=== PATIENT | female | born 1955 | race Caucasian/White ===

== ENCOUNTER 2024-08-01 10:52 | Outpatient (AMB) | payer OTHER, SELFPAY ==
--- NOTE | 2024-08-01 10:58 | A.OFFVIS_ITS ---
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 Required: No Information Interpreted: non-clinical & clinical Condenser Tester: Condenser Tester Present (Rosangela BEYBarb) Accompanied by: Self / Same As Patient Allergies No Known Allergies Allergy (Verified 08/01/24 11:03) Post menopausal: Yes HPI Comments Details: Presenting complaining of right labial lesion associated with burning/irritation of few months' duration, no vaginal discharge itching or odor PFSH Medical History Hyperlipidemia Surgical History (Reviewed 08/01/24 @ :24 by Edvin Garcia MD) H/O right breast biopsy H/O sinus surgery Family History Mother Cervical cancer Father Heart attack Brother Heart disease Social History Household Members: Spouse Housing: House Alcohol intake: never Patient Tobacco Use Status: Former Tobacco user Tobacco use type: Cigarette Years Smoked: 25 Current occupational status: retired Sexual orientation: Straight/Heterosexual Gender identity: Female Review of Systems Const All systems reviewed & are unremarkable except as noted in HPI and below Physical Exam Vital Signs: BMI result Body Mass Index 25.1 General: Yes no CVA tenderness External Female Exam: No normal external appearance (Right 0.5 cm labia majora lesion) and normal appearance of the urethra Speculum Exam - Vagina: normal appearance of the vagina, normal palpation, no lesions and no masses Speculum Exam - Cervix: normal appearance of the cervix, normal palpation, no lesions, no masses and nontender Bimanual exam- vagina & uterus: normal bimanual exam, normal palpation, uterine size normal, normal palpation, uterine shape normal, No Cervical tenderness present and non-tender Bimanual Exam- Adnexa, other: normal adnexae Back/Spine/Pelvis Back: no CVA tenderness Assessment & Plan Assessment & Plan (1) Labial lesion: Comment: Right labia majora 0.5 cm Code(s): N90.89 - Other specified noninflammatory disorders of vulva and perineum Category: Medical Plan: Discussed with the patient the finding on pelvic exam showing a right labia lesion, recommended excisional biopsy. Instructions given the patient to schedule an appointment, all questions answered, the patient verbalized understanding and agreed with the plan. Coding Level of Care Code New Pt Level 3 (45679) Diagnoses Labial lesion N90.89
[2024-08-01 11:01] VITALS: BP 118/72; BMI 25.1
== END 2024-08-01 11:27 | disposition home or self-care (01) ==
PROVIDERS: PCP Internal Medicine; Visit Provider Obstetrics & Gynecology
DX: N90.89 Other specified noninflammatory disorders of vulva and perineum (principal)
CPT/HCPCS: 99203

== ENCOUNTER → 2024-08-01 10:52 | Outpatient (BNVA) | payer OTHER, SELFPAY | PROVIDERS: PCP Internal Medicine; Visit Provider Obstetrics & Gynecology ==

== ENCOUNTER 2024-09-06 08:30 | Outpatient (REF) | payer OTHER, SELFPAY | END 2024-09-06 08:31 | disposition home or self-care (01) | LOC: HO.LNP 08:30 | PROVIDERS: PCP Internal Medicine; Visit Provider Obstetrics & Gynecology | DX: N90.89 Other specified noninflammatory disorders of vulva and perineum (principal); L72.0 Epidermal cyst | CPT/HCPCS: 56605; 88304; 88305 ==

== ENCOUNTER 2024-09-06 08:30 | Outpatient (AMB) | payer OTHER, SELFPAY ==
--- NOTE | 2024-09-06 08:48 | A.OFFVIS_ITS ---
Intake Visit Reasons: vaginal cyst Insurance Assistant: Insurance Assistant Present (Brooke) Accompanied by: Self / Same As Patient Allergies No Known Allergies Allergy (Verified 09/06/24 08:48) HPI Comments Details: Presenting for right labial lesion excision [facility] Medical History Hyperlipidemia Surgical History H/O right breast biopsy H/O sinus surgery Family History Mother Cervical cancer Father Heart attack Brother Heart disease Social History Household Members: Spouse Housing: House Alcohol intake: never Patient Tobacco Use Status: Former Tobacco user Tobacco use type: Cigarette Years Smoked: 25 Current occupational status: retired Sexual orientation: Straight/Heterosexual Gender identity: Female Review of Systems Const All systems reviewed & are unremarkable except as noted in HPI and below Physical Exam General: Yes no CVA tenderness External Female Exam: normal external appearance and normal appearance of the urethra Speculum Exam - Vagina: normal appearance of the vagina, normal palpation, no lesions and no masses Speculum Exam - Cervix: normal appearance of the cervix, normal palpation, no lesions, no masses and nontender Bimanual exam- vagina & uterus: normal bimanual exam, normal palpation, uterine size normal, normal palpation, uterine shape normal, No Cervical tenderness present and non-tender Bimanual Exam- Adnexa, other: normal adnexae Back/Spine/Pelvis Back: no CVA tenderness Office Procedures MATHEMATICS FACULTY MEMBER Biopsy Before the procedure was started d/w patient the procedure, alternatives ( do nothing, medical rx), & all the risks associated with the procedure ( bleeding , infection, vulvar scarring, painful intercourse, injury to vessels, possible need for transfusion with all its risks) then patient signed the consent. Preop dx: Right labia majora lesion Op: Right labia majora lesion excision Post op: Same Anesthesia: Lidocaine 1% 3cc used Procedure: Using betadine the area was scrubbed and draped in the usual manner. 3 cc of lidocaine was used for anesthesia at the Right labia majora lesion area ; using scissors and pickup the left vulvar lesion was excised, Vicryl was used to approximate the edges. Pressure was used for hemostasis. The patient tolerated the procedure well. Discharge Instructions: The patient was instructed to schedule an appointment in 2 weeks for follow-up and to call if temp>100.4, area of the biopsy redness or pain, nausea/vomiting. This note was generated with a voice recognition program. Some errors may have been overlooked during the review of this note. Sometimes these errors may affect the content or meaning of a given sentence. 10092-Konnnp of Vulva/Perineum Procedure code (CPT) selection complete Assessment & Plan Assessment & Plan (1) Labial lesion: Comment: Right labia majora 0.5 cm Code(s): N90.89 - Other specified noninflammatory disorders of vulva and perineum Category: Medical Plan: Right labial excision done, see procedure Orders: Orders AMB MATHEMATICS FACULTY MEMBER Biopsy Today N90.89 - Other specified noninflammatory disorders of vulva and perineum Coding Level of Care Code Procedure Only Diagnoses Labial lesion N90.89 CPT Codes MATHEMATICS FACULTY MEMBER Biopsy - CPT: 25687-Vrqnte of Vulva/Perineum ([id number])
== END 2024-09-06 09:19 | disposition home or self-care (01) ==
LOC: HO.HWS 08:30
PROVIDERS: PCP Internal Medicine; Visit Provider Obstetrics & Gynecology
DX: N90.89 Other specified noninflammatory disorders of vulva and perineum (principal)
CPT/HCPCS: 56605

== ENCOUNTER 2024-10-17 15:20 | Outpatient (AMB) | payer OTHER, SELFPAY ==
--- NOTE | 2024-10-17 15:30 | MHC.OFFVIS ---
Intake Visit Reasons: biopsy results Psychological Operations Specialist: Psychological Operations Specialist Present (Brooke) Accompanied by: Self / Same As Patient Allergies No Known Allergies Allergy (Verified 10/17/24 15:31) HPI Comments Details: Presenting to discuss the results of vulvar biopsy. If doing well with no complaint. The pathology showed the following: Vulva, right labia majora lesion, excision: Epidermal inclusion cyst. PFSH Medical History Hyperlipidemia Surgical History H/O right breast biopsy H/O sinus surgery Family History Mother Cervical cancer Father Heart attack Brother Heart disease Social History Household Members: Spouse Housing: House Alcohol intake: never Patient Tobacco Use Status: Former Tobacco user Tobacco use type: Cigarette Years Smoked: 25 Current occupational status: retired Sexual orientation: Straight/Heterosexual Gender identity: Female Review of Systems Const All systems reviewed & are unremarkable except as noted in HPI and below Reports as per HPI and Reports no additional complaints GI Reports no additional complaints Reports no additional complaints Assessment & Plan Assessment & Plan (1) Labial lesion: Comment: Right labia majora 0.5 cm Code(s): N90.89 - Other specified noninflammatory disorders of vulva and perineum Category: Medical Plan: Discussed with the patient the results the pathology. Instructions given the patient to call in case of recurrence of the cyst or any other concerns. All questions answered, the patient verbalized understanding Coding Level of Care Code Est Pt Level 3 (24277) Diagnoses Labial lesion N90.89
--- OUTSIDE RECORDS SUMMARY | 2024-10-17 16:23 | XMS_ITS | Continuity of Care Document ---
Author Organization [facility], [address] floor Address [address] [place] [address] Care Team Providers Care Dredge Operator Supervisor Name Role Phone ESTEPHANIA SWAN Primary Care Provider Assessment No assessment recorded. Plan of Treatment Reminders Order Date Submit Date Provider Last Modified By Organization Details Last Modified Time Details Appointments RECHECK 15 2024 09:00A M Isai Lacey PA-C Not available Not available Not available Lab None recorded . Referral None recorded . Procedures None recorded . Surgeries None recorded . Imaging None recorded . Medication Orders None recorded . Patient TargetsNo targets recorded. Patient InstructionsNo instructions recorded. Reason for Referral None Reported. Problems Name Problem SNOMED Code Status Onset Date Resolution Date Notes Provider Name and Address Organization Details Recorded Time Osteoarthri tis of left knee joint [id number] 09 Active 2023 Ever Baker MD [address], [place], [address], [facility] 4 13:21:33 Problem Notes None recorded. Procedures Surgical History Date Name Laterality Status Provider Name and Address Organization Details Recorded Time 5 Knee Kenalog 1cc L/R completed Isai Lacey PA-C [address], [place], [address], [facility] 10/10/2024 07:21:25 4 Sports Knee 4&1 completed Isai Lacey PA-C [address], [place], [address], [facility] 06/27/2024 17:04:50 Imaging Results None recorded. Procedure Notes None recorded. Medical Equipment None Reported. Allergies No known drug allergies Medications Name Sig Start Date Stop Date Status Note LastModified by Organization Details LastModified Time atorvastati n 20 mg tablet TAKE 1 TABLET BY MOUTH EVERY NIGHT active Not Available Not Available No t Available miconazole nitrate 2 % topical cream APPLY TOPICALLY TO THE AFFECTED AREA TWICE DAILY NEEDED 07/31 completed Not Available Not Available Not Available fluconazole 150 mg tablet 07/31 completed Not Available Not Available Not Available citalopram 10 mg tablet TAKE 1 TABLET BY MOUTH DAILY active Not Available Not Available No t Available lovastatin 10 mg tablet TAKE 1 TABLET BY MOUTH DAILY active Not Available Not Available No t Available celecoxib 100 mg capsule TAKE 1 CAPSULE BY MOUTH DAILY active Not Available Not Available No t Available diclofenac 1 % topical gel APPLY 2 GRAMS TOPICALLY TO THE AFFECTED AREA FOUR TIMES DAILY active Not Available Not Available No t Available Vitals Date Recorded Body height Provider Name an d Address Organization Details Last Updated DateTime 10/10/2024 168.91 cm ALLYSON MANZO [place] [facility] 10/10/2024 09:18:11 Social History None recorded. Functional Status None recorded. Mental Status None recorded. Family History Nothing Reported. Medical History No medical history recorded. Gynecological HistoryNo gynecological history recorded. Obstetrics History GPAL:G 0 P 0 0 0 0 Past Encounters Encounter ID Performer Location Encounter Start Date Encounter Closed Date Diagnosis/Indication Diagnosis SNOMED-CT Code Diagnosis ICD10 Code Diagnosis Note [id number] [facility] [address] [facility] [place] [address] 10/10/2024 09:06:57 10/10/2024 10:10:12 Osteoarthritis of left knee joint [id number] 47919 M17.12 Health Concerns Section Related Observation LastModified by Organization Detai ls LastModified Time None Recorded Concern Status LastModified by Organization Details LastModified Time None Recorded Payers Encounter Date Sequence Insurance Name Policy Number Policy Oconnor Covered Member ID Oconnor Member ID Guarantor Name 10/10/2024 1 [employer] (MEDICARE REPLACEMENT PPO) [id number] Richa Aragon [id number] Richa Aragon Notes Date Note Type Note Provider Name and Address Organization Details Recorded Time 10/10/2024 text/html .I am seeing the patient today under the supervision of {{Olivia* Giovanni }} who was available but who did not see the patient. Chief Complaint The patient presents today for recheck of {{left* right}} knee osteoarthritis. Is known to have knee arthritis treated conservatively to this point with {{1 2 3*}} months relief of symptoms. Presents today for recheck secondary to increased knee pain. Past Medical/Surgical History Reviewed today, otherwise unchanged per intake sheet. Physical Findings General Appearance: ? ? ? Well developed. ? ? ? In no acute distress. Musculoskeletal System: Knee: General/bilateral: ? ? ? No laxity of the knee. Right Knee: ? Medial aspect was tender on palpation. ? ? ? No erythema. ? ? ? No warmth. Left Knee: ? Medial aspect was tender on palpation. ? ? ? No erythema. ? ? ? No warmth. Musculoskeletal Scales: General/bilateral: ? Mild effusion noted. Neurological: ? ? ? Oriented to time, place, and person. Gait And Stance: ? ? ? Normal. Psychiatric: ? ? ? Mood was appropriate to the affect. Left knee 0-120 degrees of flexion with discomfort. Assessment ? Osteoarthritis of knee - Plan More than 50% of todays visit was spent on direct patient counseling regarding their knee condition and treatment options both operative with knee arthroplasty and non-operative, including oral medications and injection therapy. After discussion, my clinical decision was to go forth with an intra-articular cortisone injection. After explaining risks and benefits, under meticulous aseptic technique, the knee was injected with, 1cc of Kenalog 40mgs and 4 cc of Marcaine 1/4%. They tolerated the procedures well. Post injection precautions reviewed. Follow up with us in 3 months for further discussion of total knee replacement surgery versus continued conservative treatment. Isai Lacey PA-C [address], [place], [address], [place] [facility] 10/10/2024 10:10:10 OBGyn Episode No OBEpisode recorded.
== END 2024-10-17 15:46 | disposition home or self-care (01) ==
LOC: HO.HWS 15:20
PROVIDERS: PCP Internal Medicine; Visit Provider Obstetrics & Gynecology
DX: N90.89 Other specified noninflammatory disorders of vulva and perineum (principal)
CPT/HCPCS: 99213

== ENCOUNTER → 2024-10-17 15:20 | Outpatient (BNVA) | payer OTHER, SELFPAY | PROVIDERS: PCP Internal Medicine; Visit Provider Obstetrics & Gynecology ==